=== PATIENT | female | born 1995 | race Caucasian/White ===

== ENCOUNTER 2017-07-26 14:24 | Emergency (ER) | payer MEDICAID, OTHER ==
[~2017-07-26] VITALS: Ht 177.8 cm; Wt 78.5 kg
[2017-07-26 14:30] VITALS: BP 131/89
[2017-07-26] MEDS: IBUPROFEN 400 MG TAB PO ONE (14:46)
[2017-07-26 15:24] VITALS: BP 130/86
== END 2017-07-26 15:24 | disposition home or self-care (01) ==
LOC: MED 14:24
DX: S93.602A Unspecified sprain of left foot, initial encounter (principal); X58.XXXA Exposure to other specified factors, initial encounter; Y93.89 Activity, other specified; Y92.89 Other specified places as the place of occurrence of the external cause; Y99.8 Other external cause status
CPT/HCPCS: 73630; 99284; Q0092